=== PATIENT | female | born 1980 | race Caucasian/White ===

== ENCOUNTER 2017-08-12 15:06 | Emergency (ER) | payer MEDICAID ==
[~2017-08-12] VITALS: Ht 172.7 cm; Wt 72.7 kg
[~2017-08-12 15:06] MED LIST: AMOX875T2 PO; CHLO25CA10 PO; CYCL-1 PO; LOP25T PO; NORCO10T PO; ONDA4TAB59 PO; ONDA8TAB9 PO
[2017-08-12] MEDS ORDERED: ondansetron/PF 4mg/2ml inj IV ONE (16:20)
[2017-08-12] MEDS ORDERED: normal saline 1000ML IV soln IVB ONE (16:20)
[2017-08-12 16:50] LABS: BASOPHILS % (AUTO) 0.5 % (0-1); EOSINOPHILS # (AUTO) 0.1 X10'3 (0-0.9); EOSINOPHILS % (AUTO) 1.1 % (0-6); HEMATOCRIT 40.2 % (35.0-45.0); HEMOGLOBIN 13.7 g/dl (12.0-16.0); LYMPHOCYTES % (AUTO) 36.6 % (21-51); MEAN CORPUSCULAR HEMOGLOBIN 30.5 PG (27.0-31.0); MEAN CORPUSCULAR HGB CONC 34.1 % (33.0-36.5); MEAN CORPUSCULAR VOLUME 89.6 FL (78-98); MEAN PLATELET VOLUME 8.3 FL (7.4-10.4); MONOCYTES # (AUTO) 0.4 X10'3 (0-0.9); MONOCYTES % (AUTO) 4.6 % (2-12); NEUTROPHILS # (AUTO) 4.7 X10'3 (1.8-7.7); NEUTROPHILS % (AUTO) 57.2 % (42-75); PLATELET COUNT 364 X10'3 (140-440); RED BLOOD COUNT 4.48 X10'6 (4.20-5.60); RED CELL DISTRIBUTION WIDTH 13.3 % (11.5-14.5); WHITE BLOOD COUNT 8.3 X10'3 (4.5-11.0)
[2017-08-12 16:56] LABS: ALBUMIN 4.4 G/DL (3.4-5.0); ANION GAP 16 (8-16); BLOOD UREA NITROGEN 9 MG/DL (7-18); BUN/CREATININE RATIO 10.1 (6.6-38.0); CALCIUM 9.3 MG/DL (8.5-10.1); CHLORIDE 101 MMOL/L (99-107); CREATININE 0.89 MG/DL (0.40-0.90); GLUCOSE 105 MG/DL (70-104); POTASSIUM 3.7 MMOL/L (3.5-5.1); SODIUM 140 MMOL/L (135-145); TOTAL CARBON DIOXIDE 23.1 MMOL/L (24-32); eGFR 72 ML/MIN
[2017-08-12 17:44] VITALS: BP 140/79
== END 2017-08-12 17:46 | disposition home or self-care (01) ==
LOC: ER 15:07
DX: S06.0X9A Concussion with loss of consciousness of unspecified duration, initial encounter (principal); S60.012A Contusion of left thumb without damage to nail, initial encounter; G89.29 Other chronic pain; I10 Essential (primary) hypertension; Z79.899 Other long term (current) drug therapy; W18.39XA Other fall on same level, initial encounter; Y93.89 Activity, other specified; Y92.89 Other specified places as the place of occurrence of the external cause; Y99.8 Other external cause status
CPT/HCPCS: 36415; 70450; 73130; 80048; 85025; 96361; 96374; 99285; J2405; J7030

== ENCOUNTER 2018-12-05 08:11 | Emergency (ER) | payer MEDICAID ==
[~2018-12-05] VITALS: Ht 172.7 cm; Wt 75.0 kg
--- NOTE | 2018-12-05 08:19 | NUR ---
PT CALLED TO TRIAGE AND IS OUTSIDE SMOKING, WILL ATTEMPT TO CALL AGAIN
[2018-12-05 08:21] VITALS: BP 136/96
[2018-12-05] MEDS ORDERED: HYDROcodone/acetaminophen 5mg/325mg tablet PO ONE (08:55)
[2018-12-05] MEDS ORDERED: CefTRIAXone 250MG IM Kit w/LIDOcaine IM ONE (08:55)
[2018-12-05 08:56] LABS: CLARITY,URINE CLOUDY (Clear); COLOR,URINE YELLOW (Yellow); GLUCOSE, URINE NEGATIVE (Neg); KETONES,URINE NEGATIVE (Neg); LEUKOCYTE ESTERASE ,URINE TRACE (Neg); NITRITES, URINE NEGATIVE (Neg); OCCULT BLOOD,URINE TRACE-INTACT (Neg); PH,URINE 7.5 (4.8-8.0); PROTEIN,URINE TRACE mg/dl (Neg); UA COLLECTION TYPE CLN CATCH MIDSTREAM; UROBILINOGEN,URINE 0.2 E.U/dL (0.2-1.0)
[2018-12-05 08:58] LABS: URINE HCG NEGATIVE (NEG)
[2018-12-05 09:16] LABS: BACTERIA,URINE 4+ /HPF (Neg); SQUAMOUS EPITHELIAL CELL,UR FEW /LPF (FEW); WBC CLUMPS,URINE FEW /HPF (NEGATIVE); WBC,URINE 20-30 /HPF (0-4)
[2018-12-05] MEDS ORDERED: METR-159 PO (09:39)
[2018-12-05] MEDS ORDERED: DOXY100C43 PO (09:39)
== END 2018-12-05 09:49 | disposition home or self-care (01) ==
LOC: ER 08:11
DX: N76.0 Acute vaginitis (principal); B96.89 Other specified bacterial agents as the cause of diseases classified elsewhere; N39.0 Urinary tract infection, site not specified; I10 Essential (primary) hypertension; G89.29 Other chronic pain; Z90.49 Acquired absence of other specified parts of digestive tract; Z79.899 Other long term (current) drug therapy
CPT/HCPCS: 36415; 81001; 81025; 87077; 87088; 87186; 87491; 87591; 96372; 99283; J0696; Q0112

== ENCOUNTER 2019-03-31 09:12 | Emergency (ER) | payer MEDICAID ==
[~2019-03-31] VITALS: Ht 172.7 cm; Wt 72.7 kg
[2019-03-31] MEDS ORDERED: LORazepam 2 mg/ml vial IV ONE (09:55)
[2019-03-31] MEDS ORDERED: cloNIDine 0.1 mg tablet PO ONE (09:55)
[2019-03-31] MEDS ORDERED: normal saline 1000ML IV soln IV ONE (09:55)
[2019-03-31 10:08] LABS: BASOPHILS # (AUTO) 0.1 X10'3 (0-0.2); EOSINOPHILS # (AUTO) 0.1 X10'3 (0-0.9); EOSINOPHILS % (AUTO) 1.7 % (0-6); HEMATOCRIT 46.1 % (35.0-45.0); LYMPHOCYTES # (AUTO) 2.5 X10'3 (1.1-4.8); LYMPHOCYTES % (AUTO) 29.9 % (21-51); MEAN CORPUSCULAR HEMOGLOBIN 30.9 PG (27.0-31.0); MEAN CORPUSCULAR HGB CONC 34.8 g/dL (33.0-36.5); MEAN CORPUSCULAR VOLUME 88.8 FL (78-98); MEAN PLATELET VOLUME 9.5 FL (7.4-10.4); MONOCYTES # (AUTO) 0.6 X10'3 (0-0.9); MONOCYTES % (AUTO) 6.5 % (2-12); NEUTROPHILS # (AUTO) 5.2 X10'3 (1.8-7.7); NEUTROPHILS % (AUTO) 60.9 % (42-75); PLATELET COUNT 414 X10'3 (140-440); RED BLOOD COUNT 5.19 X10'6 (4.20-5.60); RED CELL DISTRIBUTION WIDTH 12.9 % (11.5-14.5); WHITE BLOOD COUNT 8.5 X10'3 (4.5-11.0)
[2019-03-31 10:16] LABS: D-DIMER < 0.19 MG/L FEU (0-0.50)
[2019-03-31 10:17] LABS: ALBUMIN 4.6 G/DL (3.4-5.0); ALBUMIN/GLOBULIN RATIO 1.1 (1.1-1.5); ALKALINE PHOSPHATASE 71 IU/L (46-116); ANION GAP 13 (8-16); ASPARTATE AMINO TRANSFERASE 10 U/L (10-37); BILIRUBIN,TOTAL 0.4 MG/DL (0.1-1.0); BLOOD UREA NITROGEN 17 MG/DL (7-18); BUN/CREATININE RATIO 15.2 (6.6-38.0); CALCIUM 9.5 MG/DL (8.5-10.1); CHLORIDE 95 MMOL/L (99-107); CREATININE 1.12 MG/DL (0.40-0.90); GLUCOSE 106 MG/DL (70-104); POTASSIUM 3.4 MMOL/L (3.5-5.1); SODIUM 134 MMOL/L (135-145); TOTAL CARBON DIOXIDE 26.1 MMOL/L (24-32); TOTAL PROTEIN 8.8 G/DL (6.4-8.2); eGFR 55 ML/MIN
[2019-03-31 10:20] LABS: ALANINE AMINOTRANSFERASE 12 U/L (12-78)
[2019-03-31 10:21] LABS: URINE HCG NEGATIVE (NEG)
[2019-03-31 10:23] LABS: CLARITY,URINE SLIGHTLY CLOUDY (Clear); COLOR,URINE YELLOW (Yellow); GLUCOSE, URINE NEGATIVE (Neg); KETONES,URINE NEGATIVE (Neg); LEUKOCYTE ESTERASE ,URINE SMALL (Neg); NITRITES, URINE NEGATIVE (Neg); OCCULT BLOOD,URINE NEGATIVE (Neg); PROTEIN,URINE NEGATIVE (Neg); UROBILINOGEN,URINE 0.2 E.U/dL (0.2-1.0)
[2019-03-31 10:34] LABS: UA COLLECTION TYPE CLN CATCH MIDSTREAM
[2019-03-31 10:35] LABS: BACTERIA,URINE 1+ /HPF (Neg); MUCUS STRANDS NONE SEEN /LPF (Neg); RBC,URINE NONE SEEN /HPF (0-2); SQUAMOUS EPITHELIAL CELL,UR MODERATE /LPF (FEW)
[2019-03-31] MEDS ORDERED: metoprolol tartrate 1mg/ml inj IV ONE (10:35)
[2019-03-31] MEDS ORDERED: potassium Cl 20 mEq SR tablet PO STA (10:36)
[2019-03-31 10:59] LABS: ACETAMINOPHEN < 2.0 UG/ML (10-30)
[2019-03-31] MEDS ORDERED: LORA-269 PO (11:07)
[2019-03-31] MEDS ORDERED: GABA300C PO (11:07)
[2019-03-31 11:46] VITALS: BP 112/78
[2019-03-31 11:47] LABS: URINE AMPHETAMINE SCREEN NEGATIVE (Neg); URINE BARBITUATE SCREEN NEGATIVE (Neg); URINE BENZODIAZEPINES SCREEN POSITIVE (Neg); URINE CANNABINOID SCREEN POSITIVE (Neg); URINE COCAINE SCREEN NEGATIVE (Neg); URINE METHADONE SCREEN NEGATIVE (Neg); URINE OPIATE SCREEN NEGATIVE (Neg); URINE PHENCYCLIDINE SCREEN NEGATIVE (Neg)
== END 2019-03-31 11:48 | disposition home or self-care (01) ==
LOC: ER 09:12
DX: I10 Essential (primary) hypertension (principal); F10.239 Alcohol dependence with withdrawal, unspecified; G89.29 Other chronic pain; H53.8 Other visual disturbances; R79.1 Abnormal coagulation profile; Z98.51 Tubal ligation status; Z79.899 Other long term (current) drug therapy; Y90.0 Blood alcohol level of less than 20 mg/100 ml
CPT/HCPCS: 36415; 71045; 80053; 80305; 80329; 81001; 81025; 83735; 84484; 85025; 85379; 85610; 87088; 93005; 96374; 96375; 99284; J2060; J7030; J3490

== ENCOUNTER 2019-05-06 19:56 | Emergency (ER) | payer MEDICAID ==
[~2019-05-06] VITALS: Ht 167.6 cm; Wt 54.0 kg
[~2019-05-06 19:56] MED LIST changes: +GABA300C PO; +LORA-269 PO
[2019-05-06] MEDS ORDERED: QUEtiapine 25mg tablet PO STA (21:20)
[2019-05-06] MEDS ORDERED: LORazepam 1 MG tablet PO ONE (21:25)
[2019-05-06 21:30] LABS: BASOPHILS # (AUTO) 0.1 X10'3 (0-0.2); BASOPHILS % (AUTO) 0.7 % (0-1); EOSINOPHILS # (AUTO) 0.2 X10'3 (0-0.9); EOSINOPHILS % (AUTO) 1.6 % (0-6); HEMATOCRIT 41.5 % (35.0-45.0); HEMOGLOBIN 14.6 g/dl (12.0-16.0); LYMPHOCYTES # (AUTO) 3.8 X10'3 (1.1-4.8); LYMPHOCYTES % (AUTO) 32.5 % (21-51); MEAN CORPUSCULAR HEMOGLOBIN 30.9 PG (27.0-31.0); MEAN CORPUSCULAR HGB CONC 35.1 g/dL (33.0-36.5); MEAN PLATELET VOLUME 9.4 FL (7.4-10.4); MONOCYTES # (AUTO) 0.5 X10'3 (0-0.9); MONOCYTES % (AUTO) 4.1 % (2-12); NEUTROPHILS # (AUTO) 7.1 X10'3 (1.8-7.7); NEUTROPHILS % (AUTO) 61.1 % (42-75); PLATELET COUNT 381 X10'3 (140-440); RED BLOOD COUNT 4.72 X10'6 (4.20-5.60); RED CELL DISTRIBUTION WIDTH 12.9 % (11.5-14.5); WHITE BLOOD COUNT 11.7 X10'3 (4.5-11.0)
[2019-05-06 21:35] LABS: ALANINE AMINOTRANSFERASE 22 U/L (12-78); ALBUMIN 4.5 G/DL (3.4-5.0); ALBUMIN/GLOBULIN RATIO 1.1 (1.1-1.5); ALKALINE PHOSPHATASE 70 IU/L (46-116); ANION GAP 15 (8-16); ASPARTATE AMINO TRANSFERASE 18 U/L (10-37); BILIRUBIN,TOTAL 0.3 MG/DL (0.1-1.0); BLOOD UREA NITROGEN 11 MG/DL (7-18); BUN/CREATININE RATIO 13.6 (6.6-38.0); CALCIUM 9.6 MG/DL (8.5-10.1); CHLORIDE 102 MMOL/L (99-107); CREATININE 0.81 MG/DL (0.40-0.90); GLUCOSE 98 MG/DL (70-104); POTASSIUM 3.6 MMOL/L (3.5-5.1); SODIUM 138 MMOL/L (135-145); TOTAL PROTEIN 8.6 G/DL (6.4-8.2); eGFR 80 ML/MIN
[2019-05-06] MEDS ORDERED: QUET25TA PO (21:50)
[2019-05-06 22:12] VITALS: BP 122/90
== END 2019-05-06 22:13 | disposition home or self-care (01) ==
LOC: ER 19:56
DX: F41.9 Anxiety disorder, unspecified (principal); I10 Essential (primary) hypertension; G89.29 Other chronic pain; F10.99 Alcohol use, unspecified with unspecified alcohol-induced disorder; Z87.891 Personal history of nicotine dependence; Z79.899 Other long term (current) drug therapy; Y90.9 Presence of alcohol in blood, level not specified
CPT/HCPCS: 36415; 71045; 80053; 84484; 85025; 93005; 99284

== ENCOUNTER 2020-09-04 07:02 | Emergency (ER) | payer MEDICAID ==
[~2020-09-04] VITALS: Ht 172.7 cm; Wt 68.2 kg
[~2020-09-04 07:02] MED LIST changes: +QUET25TA PO
[2020-09-04 07:45] LABS: URINE HCG NEGATIVE (NEG)
[2020-09-04 07:55] LABS: CLARITY,URINE CLEAR (Clear); COLOR,URINE YELLOW (Yellow); GLUCOSE, URINE NEGATIVE (Neg); KETONES,URINE NEGATIVE (Neg); LEUKOCYTE ESTERASE ,URINE NEGATIVE (Neg); NITRITES, URINE NEGATIVE (Neg); OCCULT BLOOD,URINE TRACE-INTACT (Neg); PROTEIN,URINE NEGATIVE (Neg); UROBILINOGEN,URINE 0.2 E.U/dL (0.2-1.0)
[2020-09-04 08:05] LABS: UA COLLECTION TYPE CLN CATCH MIDSTREAM
[2020-09-04 08:06] LABS: BACTERIA,URINE NONE SEEN /HPF (Neg); MUCUS STRANDS NONE SEEN /LPF (Neg); RBC,URINE 0-2 /HPF (0-2); SQUAMOUS EPITHELIAL CELL,UR FEW /LPF (FEW); WBC,URINE NONE SEEN /HPF (0-4)
[2020-09-04 08:06] LABS: BASOPHILS % (AUTO) 0.7 % (0-1); EOSINOPHILS # (AUTO) 0.3 X10'3 (0-0.9); EOSINOPHILS % (AUTO) 4.5 % (0-6); HEMATOCRIT 36.3 % (35.0-45.0); HEMOGLOBIN 12.3 g/dl (12.0-16.0); LYMPHOCYTES % (AUTO) 30.9 % (21-51); MEAN CORPUSCULAR HEMOGLOBIN 30.1 PG (27.0-31.0); MEAN CORPUSCULAR HGB CONC 33.9 g/dL (33.0-36.5); MEAN CORPUSCULAR VOLUME 88.8 FL (78-98); MEAN PLATELET VOLUME 8.8 FL (7.4-10.4); MONOCYTES # (AUTO) 0.4 X10'3 (0-0.9); MONOCYTES % (AUTO) 5.8 % (2-12); NEUTROPHILS # (AUTO) 3.8 X10'3 (1.8-7.7); NEUTROPHILS % (AUTO) 58.1 % (42-75); PLATELET COUNT 290 X10'3 (140-440); RED BLOOD COUNT 4.09 X10'6 (4.20-5.60); WHITE BLOOD COUNT 6.6 X10'3 (4.5-11.0)
[2020-09-04 08:21] LABS: ALANINE AMINOTRANSFERASE 19 U/L (12-78); ALBUMIN 3.7 G/DL (3.4-5.0); ALBUMIN/GLOBULIN RATIO 0.9 (1.1-1.5); ALKALINE PHOSPHATASE 82 IU/L (46-116); ANION GAP 9 (8-16); ASPARTATE AMINO TRANSFERASE 16 U/L (10-37); BILIRUBIN,TOTAL 0.3 MG/DL (0.1-1.0); BLOOD UREA NITROGEN 12 MG/DL (7-18); BUN/CREATININE RATIO 15.4 (6.6-38.0); CALCIUM 8.5 MG/DL (8.5-10.1); CHLORIDE 104 MMOL/L (99-107); CREATININE 0.78 MG/DL (0.40-0.90); GLUCOSE 89 MG/DL (70-104); LIPASE 176 U/L (73-393); POTASSIUM 3.8 MMOL/L (3.5-5.1); SODIUM 142 MMOL/L (135-145); TOTAL CARBON DIOXIDE 29.2 MMOL/L (24-32); TOTAL PROTEIN 7.6 G/DL (6.4-8.2); eGFR 82 ML/MIN
[2020-09-04] MEDS ORDERED: CYCL-1 PO (09:07)
[2020-09-04] MEDS ORDERED: ketorolac tromethamine 15mg/ml inj. IV ONE (09:20)
[2020-09-04 09:28] VITALS: BP 117/78
== END 2020-09-04 09:29 | disposition home or self-care (01) ==
LOC: ER 07:03
DX: M54.6 Pain in thoracic spine (principal); R10.12 Left upper quadrant pain; G89.29 Other chronic pain; I10 Essential (primary) hypertension; F41.9 Anxiety disorder, unspecified; F17.200 Nicotine dependence, unspecified, uncomplicated; Z98.890 Other specified postprocedural states; Z72.89 Other problems related to lifestyle; Z79.899 Other long term (current) drug therapy
CPT/HCPCS: 36415; 76775; 80053; 81001; 81025; 83690; 85025; 96374; 99284; J1885

== ENCOUNTER 2022-01-20 12:17 | Emergency (ER) | payer MEDICAID ==
[~2022-01-20] VITALS: Ht 172.7 cm; Wt 68.2 kg
[2022-01-20 13:13] VITALS: BP 95/64
[2022-01-20] MEDS ORDERED: ibuprofen tablet 400 MG TABLET PO ONE (14:55)
[2022-01-20] MEDS ORDERED: diazepam 5mg tablet PO ONE (14:55)
[2022-01-20] MEDS ORDERED: IBUP-1984 PO (14:59)
== END 2022-01-20 15:17 | disposition home or self-care (01) ==
LOC: ER 12:18
DX: M54.2 Cervicalgia (principal); M54.50 Low back pain, unspecified; G89.29 Other chronic pain; I10 Essential (primary) hypertension; F41.9 Anxiety disorder, unspecified; Z90.89 Acquired absence of other organs; Z98.890 Other specified postprocedural states; Z72.89 Other problems related to lifestyle; Z79.2 Long term (current) use of antibiotics; Z79.899 Other long term (current) drug therapy
CPT/HCPCS: 99283

== ENCOUNTER 2022-02-13 07:50 | Emergency (ER) | payer MEDICAID ==
[~2022-02-13] VITALS: Ht 172.7 cm; Wt 67.0 kg
[2022-02-13 08:18] LABS: BASOPHILS # (AUTO) 0.1 X10'3 (0-0.2); BASOPHILS % (AUTO) 0.6 % (0-1); EOSINOPHILS # (AUTO) 0.2 X10'3 (0-0.9); EOSINOPHILS % (AUTO) 2.1 % (0-6); HEMATOCRIT 42.6 % (35.0-45.0); HEMOGLOBIN 14.4 g/dl (12.0-16.0); LYMPHOCYTES # (AUTO) 1.9 X10'3 (1.1-4.8); LYMPHOCYTES % (AUTO) 19.4 % (21-51); MEAN CORPUSCULAR HEMOGLOBIN 29.9 PG (27.0-31.0); MEAN CORPUSCULAR HGB CONC 33.8 g/dL (33.0-36.5); MEAN CORPUSCULAR VOLUME 88.3 FL (78-98); MEAN PLATELET VOLUME 8.9 FL (7.4-10.4); MONOCYTES # (AUTO) 0.5 X10'3 (0-0.9); MONOCYTES % (AUTO) 5.1 % (2-12); NEUTROPHILS # (AUTO) 7.1 X10'3 (1.8-7.7); NEUTROPHILS % (AUTO) 72.8 % (42-75); PLATELET COUNT 319 X10'3 (140-440); RED BLOOD COUNT 4.82 X10'6 (4.20-5.60); RED CELL DISTRIBUTION WIDTH 13.6 % (11.5-14.5); WHITE BLOOD COUNT 9.8 X10'3 (4.5-11.0)
[2022-02-13 08:30] LABS: URINE HCG NEGATIVE (NEG)
[2022-02-13 08:35] LABS: ALANINE AMINOTRANSFERASE 16 U/L (12-78); ALBUMIN 4.3 G/DL (3.4-5.0); ALBUMIN/GLOBULIN RATIO 1.2 (1.1-1.5); ALKALINE PHOSPHATASE 78 IU/L (46-116); ANION GAP 10 (8-16); ASPARTATE AMINO TRANSFERASE 20 U/L (10-37); BILIRUBIN,TOTAL 0.5 MG/DL (0.1-1.0); BLOOD UREA NITROGEN 8 MG/DL (7-18); CALCIUM 8.8 MG/DL (8.5-10.1); CHLORIDE 102 MMOL/L (99-107); GLUCOSE 101 MG/DL (70-104); LIPASE 122 U/L (73-393); POTASSIUM 3.4 MMOL/L (3.5-5.1); SODIUM 137 MMOL/L (135-145); TOTAL CARBON DIOXIDE 25.4 MMOL/L (24-32); eGFR 61 ML/MIN
[2022-02-13 08:44] LABS: CLARITY,URINE CLEAR (Clear); GLUCOSE, URINE NEGATIVE (Neg); KETONES,URINE NEGATIVE (Neg); LEUKOCYTE ESTERASE ,URINE NEGATIVE (Neg); NITRITES, URINE NEGATIVE (Neg); OCCULT BLOOD,URINE NEGATIVE (Neg); PROTEIN,URINE NEGATIVE (Neg); UROBILINOGEN,URINE 0.2 E.U/dL (0.2-1.0)
[2022-02-13] MEDS ORDERED: famotidine 20mg tablet PO ONE (08:45)
[2022-02-13] MEDS ORDERED: mag hydrox/Alum hydrox/simeth 30ml oral suspension PO ONE (08:45)
[2022-02-13] MEDS ORDERED: LIDOcaine Viscous 15ml cup MM ONE (08:45)
[2022-02-13 08:49] LABS: COLOR,URINE STRAW (Yellow); UA COLLECTION TYPE CLN CATCH MIDSTREAM
[2022-02-13] MEDS ORDERED: ondansetron 4mg rapidly disintigrating tab PO ONE (09:05)
[2022-02-13 11:00] VITALS: BP 123/86
[2022-02-13] MEDS ORDERED: pantoprazole 40mg Tablet.DR PO ONE (11:05)
[2022-02-13] MEDS ORDERED: PANT-47 PO (11:08)
[2022-02-13] MEDS ORDERED: ONDA8TAB13 PO (11:13)
== END 2022-02-13 11:27 | disposition home or self-care (01) ==
LOC: ER 07:50
DX: R10.13 Epigastric pain (principal); R11.10 Vomiting, unspecified; I10 Essential (primary) hypertension; F41.9 Anxiety disorder, unspecified; G89.29 Other chronic pain; Z79.899 Other long term (current) drug therapy
CPT/HCPCS: 36415; 76700; 80053; 81003; 81025; 83690; 85025; 99284; 99285

== ENCOUNTER 2023-06-28 14:47 | Inpatient (IN) | payer MEDICAID ==
[~2023-06-28] VITALS: Ht 172.7 cm; Wt 62.2 kg
[~2023-06-28 14:47] MED LIST changes: +ONDA8TAB13 PO; +PANT-47 PO
[2023-06-28 15:29] LABS: BASOPHILS # (AUTO) 0.1 X10'3 (0-0.2); BASOPHILS % (AUTO) 0.7 % (0-1); EOSINOPHILS # (AUTO) 0.2 X10'3 (0-0.9); EOSINOPHILS % (AUTO) 2.2 % (0-6); HEMATOCRIT 35.1 % (35.0-45.0); HEMOGLOBIN 11.8 g/dl (12.0-16.0); LYMPHOCYTES # (AUTO) 3.3 X10'3 (1.1-4.8); LYMPHOCYTES % (AUTO) 29.1 % (21-51); MEAN CORPUSCULAR HEMOGLOBIN 30.3 PG (27.0-31.0); MEAN CORPUSCULAR HGB CONC 33.7 g/dL (33.0-36.5); MEAN CORPUSCULAR VOLUME 89.9 FL (78-98); MEAN PLATELET VOLUME 8.9 FL (7.4-10.4); MONOCYTES % (AUTO) 9.2 % (2-12); NEUTROPHILS # (AUTO) 6.6 X10'3 (1.8-7.7); NEUTROPHILS % (AUTO) 58.8 % (42-75); PLATELET COUNT 268 X10'3 (140-440); RED BLOOD COUNT 3.91 X10'6 (4.20-5.60); RED CELL DISTRIBUTION WIDTH 13.5 % (11.5-14.5); WHITE BLOOD COUNT 11.3 X10'3 (4.5-11.0)
[2023-06-28 15:45] LABS: ALANINE AMINOTRANSFERASE 20 U/L (12-78); ALBUMIN 3.8 G/DL (3.4-5.0); ALBUMIN/GLOBULIN RATIO 1.2 (1.1-1.5); ALKALINE PHOSPHATASE 59 IU/L (46-116); ANION GAP 11 (8-16); ASPARTATE AMINO TRANSFERASE 20 U/L (10-37); BILIRUBIN,TOTAL 0.6 MG/DL (0.1-1.0); BLOOD UREA NITROGEN 14 MG/DL (7-18); BUN/CREATININE RATIO 13.7 (10.0-20.0); CALCIUM 8.4 MG/DL (8.5-10.1); CHLORIDE 104 MMOL/L (99-107); CREATININE 1.02 MG/DL (0.40-0.90); GLUCOSE 79 MG/DL (70-104); POTASSIUM 3.6 MMOL/L (3.5-5.1); SODIUM 139 MMOL/L (135-145); TOTAL CARBON DIOXIDE 23.7 MMOL/L (24-32); TOTAL PROTEIN 7.1 G/DL (6.4-8.2); eCRCL 71 ML/MIN; eGFR 60 ML/MIN
[2023-06-28 15:54] LABS: ACETAMINOPHEN 2.2 UG/ML (10-30); ETHANOL < 10 MG/DL (<10); SALICYLATE 2.6 MG/DL (4.0-20.0); THYROID STIMULATING HORMONE 2.14 ulU/ml (0.34-4.50)
[2023-06-28 16:12] LABS: URINE HCG NEGATIVE (NEG)
[2023-06-28 16:21] LABS: URINE AMPHETAMINE SCREEN NEGATIVE (Neg); URINE BARBITUATE SCREEN NEGATIVE (Neg); URINE BENZODIAZEPINES SCREEN NEGATIVE (Neg); URINE CANNABINOID SCREEN POSITIVE (Neg); URINE COCAINE SCREEN NEGATIVE (Neg); URINE METHADONE SCREEN NEGATIVE (Neg); URINE OPIATE SCREEN POSITIVE (Neg); URINE PHENCYCLIDINE SCREEN NEGATIVE (Neg)
[2023-06-28] MEDS ORDERED: clonidine (16:22)
[2023-06-28] MEDS ORDERED: potassium Cl 40MEQ/1/2NS 520ml 520 ML IV PRN (16:25)
[2023-06-28] MEDS ORDERED: morphine 2 MG/ML inj. syringe IV PRN ×3 (16:25→17:45)
[2023-06-28] MEDS ORDERED: HYDROcodone/acetaminophen 5mg/325mg tablet PO PRN ×2 (16:25→17:45)
[2023-06-28] MEDS ORDERED: HYDROcodone/acetaminophen 10/325mg tab PO PRN ×2 (16:25→17:45)
[2023-06-28] MEDS ORDERED: potassium Cl 20 mEq SR tablet PO PRN ×2 (16:25)
[2023-06-28] MEDS ORDERED: magnesium Cl slow-release 64mg tablet PO PRN (16:25)
[2023-06-28] MEDS ORDERED: acetaminophen 325mg tablet PO PRN ×2 (16:25)
[2023-06-28] MEDS ORDERED: magnesium 4gm in 100ml NS 100 ML IV PRN (16:25)
[2023-06-28] MEDS ORDERED: ondansetron/PF 4mg/2ml inj IV PRN (16:25)
[2023-06-28] MEDS: diazepam inj 5 MG/ML inj. IV STA (16:45)
[2023-06-28] MEDS: normal saline 1000ml 1,000 ML IV SCH (16:49)
[2023-06-28 16:58] LABS: CREATINE KINASE 175 U/L (26-192)
[2023-06-28] MEDS ORDERED: LORazepam 2 mg/ml vial IV PRN (17:40)
[2023-06-28 18:21] LABS: SALICYLATE 2.6 MG/DL (4.0-20.0)
[2023-06-28 18:31] LABS: ACETAMINOPHEN < 2.0 UG/ML (10-30)
[2023-06-28] MEDS: enoxaparin 40mg/0.4ml syringe SQ SCH (20:00)
[2023-06-28] MEDS ORDERED: AMIT50TA15 PO (20:33)
[2023-06-28] MEDS: LORazepam 1 MG tablet PO PRN (21:08)
[2023-06-29] MEDS: normal saline 1000ml 1,000 ML IV SCH (00:35)
[2023-06-29] MEDS: magnesium 2GM in 50ml NS 50 ML IV PRN (04:25)
[2023-06-29] MEDS: atenolol 25mg tablet PO SCH (09:05)
[2023-06-29] MEDS: nicotine 14mg patch - 24hr TD SCH (09:05)
[2023-06-29 09:08] LABS: BASOPHILS # (AUTO) 0.1 X10'3 (0-0.2); BASOPHILS % (AUTO) 0.7 % (0-1); EOSINOPHILS # (AUTO) 0.1 X10'3 (0-0.9); EOSINOPHILS % (AUTO) 1.5 % (0-6); HEMATOCRIT 35.2 % (35.0-45.0); HEMOGLOBIN 11.7 g/dl (12.0-16.0); LYMPHOCYTES # (AUTO) 1.2 X10'3 (1.1-4.8); LYMPHOCYTES % (AUTO) 12.3 % (21-51); MEAN CORPUSCULAR HEMOGLOBIN 30.3 PG (27.0-31.0); MEAN CORPUSCULAR HGB CONC 33.3 g/dL (33.0-36.5); MEAN CORPUSCULAR VOLUME 90.8 FL (78-98); MEAN PLATELET VOLUME 9.2 FL (7.4-10.4); MONOCYTES # (AUTO) 0.5 X10'3 (0-0.9); MONOCYTES % (AUTO) 5.8 % (2-12); NEUTROPHILS # (AUTO) 7.6 X10'3 (1.8-7.7); NEUTROPHILS % (AUTO) 79.7 % (42-75); PLATELET COUNT 239 X10'3 (140-440); RED BLOOD COUNT 3.87 X10'6 (4.20-5.60); RED CELL DISTRIBUTION WIDTH 13.6 % (11.5-14.5); WHITE BLOOD COUNT 9.5 X10'3 (4.5-11.0)
[2023-06-29 10:14] LABS: ALANINE AMINOTRANSFERASE 15 U/L (12-78); ALBUMIN 3.3 G/DL (3.4-5.0); ALKALINE PHOSPHATASE 59 IU/L (46-116); ANION GAP 14 (8-16); ASPARTATE AMINO TRANSFERASE 17 U/L (10-37); BILIRUBIN,TOTAL 0.8 MG/DL (0.1-1.0); BLOOD UREA NITROGEN 8 MG/DL (7-18); BUN/CREATININE RATIO 9.5 (10.0-20.0); CALCIUM 7.8 MG/DL (8.5-10.1); CHLORIDE 106 MMOL/L (99-107); CREATININE 0.84 MG/DL (0.40-0.90); GLUCOSE 77 MG/DL (70-104); MAGNESIUM 2.4 MG/DL (1.5-2.4); PHOSPHORUS 2.7 MG/DL (2.3-4.5); POTASSIUM 3.4 MMOL/L (3.5-5.1); SODIUM 141 MMOL/L (135-145); TOTAL CARBON DIOXIDE 20.6 MMOL/L (24-32); TOTAL PROTEIN 6.5 G/DL (6.4-8.2); eCRCL 87 ML/MIN; eGFR 75 ML/MIN
[2023-06-29] MEDS: morphine 2 MG/ML inj. syringe IV PRN (13:04)
[2023-06-29 13:07] VITALS: TEMP 98.5; O2SAT 100
[2023-06-29 16:41] VITALS: BP 147/101; PULSE 86; RESP 16
[2023-07-03] MEDS ORDERED: thiamine 100mg tablet PO SCH (08:00)
[2023-07-03] MEDS ORDERED: folic acid 1mg tablet PO SCH (08:00)
== END 2023-06-29 19:42 | disposition home or self-care (01) | DRG 812 ==
LOC: ER 14:47 → ED HOLD 16:27
PROVIDERS: ADMIT Internal Medicine; ATTEND Internal Medicine
DX: T43.291A Poisoning by other antidepressants, accidental (unintentional), initial encounter (principal); R45.851 Suicidal ideations; R56.9 Unspecified convulsions; F12.10 Cannabis abuse, uncomplicated; F10.90 Alcohol use, unspecified, uncomplicated; F17.210 Nicotine dependence, cigarettes, uncomplicated; E87.6 Hypokalemia; I10 Essential (primary) hypertension; F41.1 Generalized anxiety disorder; R94.31 Abnormal electrocardiogram [ECG] [EKG]; Z20.822 Contact with and (suspected) exposure to COVID-19; G89.4 Chronic pain syndrome; F51.04 Psychophysiologic insomnia; M54.9 Dorsalgia, unspecified; F32.A Depression, unspecified; Z79.899 Other long term (current) drug therapy; Z71.6 Tobacco abuse counseling; Y92.89 Other specified places as the place of occurrence of the external cause
CPT/HCPCS: 36415; 70450; 71045; 80053; 80305; 80320; 80329; 81025; 82550; 83735; 84100; 84443; 85025; 87811; 93005; 99285; A4353; G0378; J1650; J2270; J3360; J3475; J7030

== ENCOUNTER 2024-06-12 07:19 | Emergency (ER) | payer MEDICAID ==
[~2024-06-12] VITALS: Ht 175.3 cm; Wt 63.6 kg
[~2024-06-12 07:19] MED LIST changes: +AMIT50TA15 PO; +ONDA-245 PO; -ONDA8TAB13 PO; +clonidine
[2024-06-12 07:35] VITALS: TEMP 98.4
[2024-06-12 10:00] LABS: BILIRUBIN,URINE NEGATIVE (Neg); CLARITY,URINE CLEAR (Clear); COLOR,URINE YELLOW (Yellow); GLUCOSE, URINE NEGATIVE (Neg); KETONES,URINE NEGATIVE (Neg); LEUKOCYTE ESTERASE ,URINE NEGATIVE (Neg); NITRITES, URINE NEGATIVE (Neg); OCCULT BLOOD,URINE NEGATIVE (Neg); PH,URINE 6.5 (4.8-8.0); PROTEIN,URINE NEGATIVE (Neg); UROBILINOGEN,URINE 0.2 E.U/dL (0.2-1.0)
[2024-06-12 10:02] LABS: URINE HCG NEGATIVE (NEG)
[2024-06-12 10:10] LABS: UA COLLECTION TYPE CLN CATCH MIDSTREAM
[2024-06-12 10:17] LABS: BASOPHILS % (AUTO) 0.6 % (0-1); EOSINOPHILS # (AUTO) 0.2 X10'3 (0-0.9); EOSINOPHILS % (AUTO) 2.2 % (0-6); HEMATOCRIT 40.8 % (35.0-45.0); HEMOGLOBIN 13.5 g/dl (12.0-16.0); LYMPHOCYTES # (AUTO) 1.4 X10'3 (1.1-4.8); MEAN CORPUSCULAR HEMOGLOBIN 29.8 PG (27.0-31.0); MEAN CORPUSCULAR HGB CONC 33.2 g/dL (33.0-36.5); MEAN CORPUSCULAR VOLUME 89.9 FL (78-98); MEAN PLATELET VOLUME 8.6 FL (7.4-10.4); MONOCYTES # (AUTO) 0.5 X10'3 (0-0.9); MONOCYTES % (AUTO) 6.2 % (2-12); NEUTROPHILS # (AUTO) 5.5 X10'3 (1.8-7.7); PLATELET COUNT 375 X10'3 (140-440); RED BLOOD COUNT 4.54 X10'6 (4.20-5.60); RED CELL DISTRIBUTION WIDTH 14.3 % (11.5-14.5); WHITE BLOOD COUNT 7.6 X10'3 (4.5-11.0)
[2024-06-12 10:39] LABS: ALANINE AMINOTRANSFERASE 28 U/L (12-78); ALBUMIN 3.5 G/DL (3.4-5.0); ALBUMIN/GLOBULIN RATIO 0.7 (1.1-1.5); ALKALINE PHOSPHATASE 206 IU/L (46-116); ANION GAP 10 (8-16); ASPARTATE AMINO TRANSFERASE 16 U/L (10-37); BILIRUBIN,TOTAL 0.6 MG/DL (0.1-1.0); BLOOD UREA NITROGEN 12 MG/DL (7-18); BUN/CREATININE RATIO 16.2 (10.0-20.0); CALCIUM 8.9 MG/DL (8.5-10.1); CHLORIDE 100 MMOL/L (99-107); CREATININE 0.74 MG/DL (0.40-0.90); GLUCOSE 102 MG/DL (70-104); LIPASE 110 U/L (16-77); POTASSIUM 3.6 MMOL/L (3.5-5.1); SODIUM 134 MMOL/L (135-145); TOTAL CARBON DIOXIDE 23.9 MMOL/L (24-32); TOTAL PROTEIN 8.2 G/DL (6.4-8.2); eCRCL 100 ML/MIN; eGFR 86 ML/MIN
[2024-06-12 11:06] VITALS: BP 124/91; PULSE 91; RESP 14; O2SAT 96
== END 2024-06-12 11:08 | disposition home or self-care (01) ==
LOC: ER 07:21
DX: R10.11 Right upper quadrant pain (principal); I10 Essential (primary) hypertension; Z79.899 Other long term (current) drug therapy; Z79.2 Long term (current) use of antibiotics; Z90.89 Acquired absence of other organs
CPT/HCPCS: 36415; 80053; 81003; 81025; 83690; 85025; 99284